=== PATIENT | male | born 1990 | race Caucasian/White ===

== ENCOUNTER → 2016-05-19 | Outpatient (CLI) | payer BC ==
[2016-05-19 13:12] LABS: HEMATOCRIT 40.5 % (42-52); MEAN CELL VOLUME 83.5 fL (80-100); MEAN CORPUSCULAR HEMOGLOBIN 29.3 pg (25-34); MEAN CORPUSCULAR HGB CONC 35.1 g/dl (32-36); MEAN PLATELET VOLUME 11.4 fL (7.4-10.4); PLATELET COUNT 231 K/uL (130-400); RED BLOOD COUNT 4.85 M/uL (4.7-6.1); WHITE BLOOD COUNT 5.43 K/uL (4.8-10.8)
[2016-05-19 13:33] LABS: ALT/SGPT 25 U/L (12-78); BLOOD UREA NITROGEN 17 mg/dl (7-18); BUN/CREATININE RATIO 15.2 (10-20); CALCIUM 9.3 mg/dl (8.5-10.1); CARBON DIOXIDE 28 mmol/L (21-32); CHLORIDE 105 mmol/L (98-107); CHOLESTEROL 137 mg/dl (0-200); GLUCOSE 88 mg/dl (70-99); POTASSIUM 4.6 mmol/L (3.5-5.1); SODIUM 140 mmol/L (136-145); TRIGLYCERIDES 40 mg/dl (0-150); VERY LOW DENSITY LIPOPROT CALC 8 mg/dl
[2016-05-19 13:36] LABS: ALB/GLOB RATIO 1.2 (0.9-2); ALKALINE PHOSPHATASE 62 U/L (45-117); AST/SGOT 16 U/L (15-37); CHOLESTEROL/HDL RATIO 2.6; HDL CHOLESTEROL 52 mg/dl; LDL CHOLESTEROL CALCULATED 77 mg/dl
[2016-05-19 13:58] LABS: URINE APPEARANCE CLEAR (CLEAR); URINE BILIRUBIN NEG (NEG); URINE COLOR YELLOW; URINE NITRITE NEG (NEG); URINE PH 5.5 (4.5-7.5); URINE SPECIFIC GRAVITY 1.017 (1.000-1.030); UROBILINOGEN NEG (NEG); ZZUR CULT IF INDIC CLEAN CATCH NO
[2016-05-19 14:12] LABS: MANUAL MICROSCOPIC REQUIRED? NO; REVIEW REQ? NO
== END | disposition home or self-care (01) ==
LOC: C.LABBC 09:07
PROVIDERS: ATTEND Internal Medicine
DX: Z00.00 Encounter for general adult medical examination without abnormal findings (principal); Z13.1 Encounter for screening for diabetes mellitus; Z13.220 Encounter for screening for lipoid disorders; R35.0 Frequency of micturition

== ENCOUNTER → 2016-05-28 | Outpatient (CLI) | payer BC ==
--- NOTE | 2016-05-28 09:05 | DIAGNOSTIC IMAGING REPORT ---
BLADDER ULTRASOUND CLINICAL HISTORY: Urinary frequency. COMPARISON STUDY: No previous studies for comparison. TECHNIQUE: Pre and post void sonography of the bladder was performed. FINDINGS: The prevoid volume of the bladder was 354 cc and the post void volume was 22 cc. Both ureteral jets were identified. No bladder mass was identified by sonography. Bladder wall was unremarkable. The prostate was prominent, measuring 5.6 x 4.6 x 2.4 cm. IMPRESSION: 1. No bladder abnormality identified by sonography. 2. Post void bladder volume of 22 cc. 3. Prominent prostate. Electronically signed by: Jonathan Cohen M.D. 05/28/2016 9:03 AM Dictated Date/Time: 05/28/2016 9:01 AM
== END | disposition home or self-care (01) ==
LOC: C.ULTRBC 08:21
PROVIDERS: ATTEND Internal Medicine
DX: R35.0 Frequency of micturition (principal)